=== PATIENT | male | born 1965 | race Caucasian/White ===

== ENCOUNTER → 2019-12-15 13:11 | Outpatient (BNVA) | payer MEDICARE, MEDICAID, SELFPAY | PROVIDERS: PCP Internal Medicine; Referring Provider Internal Medicine; Visit Provider Surgery | DX: R10.9 Unspecified abdominal pain (principal); I10 Essential (primary) hypertension | CPT/HCPCS: 99202 ==

== ENCOUNTER 2021-09-16 01:26 | Outpatient (CLI) | payer MEDICARE, MEDICAID, SELFPAY ==
--- NOTE | 2021-09-16 11:00 | DI.NM_ITS ---
Exam(s) NM BONE SCAN WHOLE BODY GRP EXAM: NM BONE SCAN WHOLE BODY GRP CLINICAL HISTORY: PROSTATE CA. TECHNIQUE: Injected Dose: 25 mCi Tc-99m MDP Delayed Images: 2-3 hours. COMPARISON: CT CT ABDOMEN PELVIS WO from 09/16/2021 FINDINGS: There is focal increased uptake seen in the right shoulder at the AC joint level, most probably degen erative. There is some increased focal uptake seen in the mid-lower lumbar spine at L3-4 level consistent with degenerative disc disease chronic nature as seen on today's abdominal CT scan. There is also focus of increased uptake seen in the right side the thoracic spinal column at approxim ately T6 level. Suspect that this is also degenerative. No abnormal uptake seen in the rib cages no r in the pelvis and hips. Some uptake in the medial compartment of the right knee is consistent with degenerative change. A small focus of increased uptake seen at the level of the anterior tibial tub ercle or slightly lateral of this in the right tibial upper metaphysis is noted. It is doubtful that this would be metastatic. IMPRESSION: 1. Foci of increased skeletal uptake as described individually above. Doubtful for metastatic osseou s disease. 2. Small focus of increased uptake seen in the lateral aspect of the proximal right tibial metaphysi s noted which doubtful for metastatic disease. Nevertheless, recommend right knee plain films. DATA REPOSITORY:
[2021-09-16] MEDS: Breeza Beverage 473 ML BTL PO (11:57)
[2021-09-16] MEDS: Gastrografin 120 ML BTL 25 ML PO (11:59)
--- NOTE | 2021-09-16 13:00 | DI.CT_ITS ---
Exam(s) CT ABDOMEN PELVIS WO EXAM: CT ABDOMEN PELVIS WO CLINICAL HISTORY: PROSTATE CA. TECHNIQUE: Imaging Protocol: Axial computed tomography images with coronal and sagittal reformatted images were created and reviewed CONTRAST MATERIAL: Intravenous: none Oral: Yes COMPARISON: No exams were available for comparison FINDINGS: VISUALIZED LUNG BASES: There are multiple tiny benign calcified granulomas in the visualized lung bas es. There are no pleural effusions.. ABDOMEN: There is no ascites. MESENTERY: There is haziness of the central mesentery, not associated with a distinct mass nor promin ent mesenteric lymphadenopathy. LIVER: There are no obvious focal hepatic lesions evident of this noninfused study. Calcified granul omas noted in the liver. GALLBLADDER/BILIARY: Gallbladder surgically absent. CBD is not dilated. PANCREAS: No evidence of pancreatic mass nor dilatation of the pancreatic duct. SPLEEN: Spleen size is normal. There are multiple calcified granulomas in the spleen evident. ADRENALS: There are no significant adrenal masses. KIDNEYS:No cysts evident. No solid renal masses. No calculi nor hydronephrosis. . ABDOMINAL AORTA: Abdominal aorta is not enlarged. LYMPH NODES: There is no retroperitoneal nor paraaortic adenopathy. ABDOMINAL WALL: There is a small fat only containing umbilical hernia. GI: There is no evidence of bowel obstruction, free air, nor abscess. PELVIS: LYMPH NODES: There is no intrapelvic nor inguinal adenopathy. GI: No evidence of appendicitis.No evidence of sigmoid diverticulitis. URINARY BLADDER: No calculi nor obvious masses evident REPRODUCTIVE: Prostate size is normal. Seminal vesicles unremarkable. OSSEOUS: There are no lytic nor blastic osseous lesions. There is a small benign-appearing bone devyn nd in the right ischial tuberosity. There is ankylosis of the left sacroiliac joint. IMPRESSION: 1. There are multiple benign calcified granulomas in the spleen, liver, and lung bases. There are no obvious metastatic appearing lesions in these organs evident on this noninfused study. 2. There is haziness in the central mesentery around the superior mesenteric vessels. This dahlia- ty pe mesentery pattern can be nonspecific but can also be seen in pathologic conditions, including lymp rayna. However, there are no prominent abnormal lymph nodes evident on the present study. 3. No lytic nor blastic osseous lesions identified. RADIATION DOSE DELIVERED: 1,464.66mGy.cm Total DLP DATA REPOSITORY: All CT scans at this facility are submitted to the National Radiology Data Registry (NRDR) Dose Index Registry (DIR) with the [employer] (ACR). RADIATION OPTIMIZATION: All CT scans at this facility use at least one of these dose optimization te chniques: automated exposure control; mA and/or kV adjustment per patient size (includes targeted exa ms where dose is matched to clinical indication); or iterative reconstruction.
== END 2021-09-16 01:46 ==
PROVIDERS: PCP Internal Medicine; Visit Provider Internal Medicine
DX: C61 Malignant neoplasm of prostate (principal); K76.89 Other specified diseases of liver; R91.8 Other nonspecific abnormal finding of lung field; D73.89 Other diseases of spleen; K55.8 Other vascular disorders of intestine
CPT/HCPCS: 78306; 74176; 82565

== ENCOUNTER 2023-08-06 10:45 | Outpatient (REF) | payer MEDICARE, MEDICAID, SELFPAY ==
--- NOTE | 2023-08-06 11:45 | SKI_PTH ---
PATIENT: Km Franco LOC: [facility] U#:[id number] AGE/SX: 58/M ROOM: RE08/06/[address]: Ceci Morrow : 1965 BED: DIS: 08/06/2023 SPEC #: [id number] RECD: 08/06/23 12:21 STATUS: ED [facility] #: [id number] KETAN: 08/06/23 11:[address]: Ceci Morrow DEPT: Surgical Specimen RECD BY: Faye Lovell ENTERED: 08/06/23 12:22 SP TYPE: YASMIN GOVEA DR: Jasmin Medina Tissues: 1 - SKIN BIOPSY(SHAVE/PUNCH) Procedures: SKIN LEVEL 4 Comments: [id number]
== END 2023-08-06 10:46 | disposition home or self-care (01) ==
LOC: LBN 10:45
PROVIDERS: PCP Internal Medicine; Visit Provider Surgery
DX: L73.8 Other specified follicular disorders (principal); R21 Rash and other nonspecific skin eruption
CPT/HCPCS: 88305

== ENCOUNTER → 2023-08-06 10:45 | Outpatient (BNVA) | payer MEDICARE, MEDICAID, SELFPAY | PROVIDERS: PCP Internal Medicine; Referring Provider Internal Medicine; Visit Provider Surgery | DX: L73.9 Follicular disorder, unspecified (principal); R22.2 Localized swelling, mass and lump, trunk; K91.89 Other postprocedural complications and disorders of digestive system; L27.0 Generalized skin eruption due to drugs and medicaments taken internally; L29.9 Pruritus, unspecified | CPT/HCPCS: 11301 ==

== ENCOUNTER → 2023-08-09 04:07 | Outpatient (CLI) | payer MEDICARE, MEDICAID, SELFPAY ==
--- NOTE | 2023-08-09 06:15 | DI.US_ITS ---
Exam(s) US SOFT TISSUE HEAD OR NECK EXAM: US SOFT TISSUE HEAD OR NECK CLINICAL HISTORY: Soft tissue swelling of neck,R22.9. TECHNIQUE: Ultrasound was performed using standard protocol. COMPARISON: No exams were available for comparison FINDINGS: Sonographic assessment utilizing grayscale and color Doppler imaging was performed and targeted to th e area of clinical concern. No suspicious cystic or solid masses are seen in the neck in the area of concern. IMPRESSION: Unremarkable examination. DATA REPOSITORY:
--- NOTE | 2023-08-09 06:15 | DI.US_ITS ---
Exam(s) US THYROID EXAM: US THYROID CLINICAL HISTORY: neck swollen/hx goiter,R22.9. TECHNIQUE: Ultrasound thyroid performed using standard protocol. COMPARISON: No priors for comparison. FINDINGS: ISTHMUS: 6.5 mm RIGHT LOBE: Size: 5.7 x 1.8 x 1.9 cm Echogenicity: Normal. Vascularity: Normal. Nodules: None. LEFT LOBE: Size: 5.1 x 1.5 x 1.7 cm Echogenicity: Normal. Vascularity: Normal. Nodules: None. OTHER FINDINGS: None. IMPRESSION: Normal sonographic appearance of the thyroid gland. DATA REPOSITORY:
== END ==
PROVIDERS: PCP Internal Medicine; Visit Provider Surgery
DX: R22.2 Localized swelling, mass and lump, trunk (principal); Z86.39 Personal history of other endocrine, nutritional and metabolic disease
CPT/HCPCS: 76536

== ENCOUNTER 2023-08-24 06:44 | Day surgery (SDC) | payer MEDICARE, MEDICAID, SELFPAY ==
--- NOTE | 2023-08-23 15:34 | ENDO_ITS ---
Date of service: 08/24/23 Time of Service: 09:00 Endoscopy Report DATE OF PROCEDURE: 08/24/23 PRE-OP DIAGNOSIS: Medication refractory GERD/dysphagia/s/p Jodi POST-OP DIAGNOSIS: other (Bile reflux gastritis) SURGEON: Ceci Morrow ANESTHESIA TYPE: General:No Airway ESTIMATED BLOOD LOSS: 1 PATHOLOGY: other COMPLICATIONS: None DISPOSITION: same day PROCEDURE DESCRIPTION: After informed consent was obtained the patient was take to the procedure room and placed in a supine position. Monitors were applied and a time out was done. The patients name, date of , procedure type, allergies to medications and metal in their body was reviewed. A bite block was placed and the patient was sedated. Once sedated and comfortable the gastroscope was advanced through the oropharynx which was grossly normal into the esophagus. The proximal and mid- esophagus were normal. In the distal esophagus: the wrap has come undone, But there is significant scarring in the posterior portion of the esophagus noted. I am able to pass the scope, But if the stricturing becomes any worse he may require dilation. There are no signs esophageal erosion. There is no diverticula or varices. The scope was advanced into the stomach and through the pylorus into the 3rd portion of the duodenum. The duodenum was noted to be normal. Biopsies were done, all specimens are retrieved and no bleeding is noted. The scope was retracted back into the stomach and biopsies were done to rule out H. pylori. Upon entering the stomach there was noted to be a small amount of bile present. He has mild gastritis in the distal one third of his stomach. There is no ulceration or active bleeding. the scope was retroflexed. The cardia and fundus were noted to be normal. There is no hiatal hernia noted. The scope was retracted back into the esophagus and biopsies were done of the GE junction to rule out Agudelo's. The Z line was regular. The GE junction was at 40 cm. The scope was removed and the patient was woken up and taken back to [facility] in stable condition.
--- NOTE | 2023-08-24 05:44 | ANES.PREOP_ITS ---
General Info Date of Service Date Performed: 08/24/23 Height: 5 ft 6.5 in Weight: 101.605 kg Body Mass Index (BMI): 35.6 Surgical Procedure: Operation Date: 08/24/23 08:20 Proposed Procedure Side Surgeon p Gastroscopy Ceci Morrow, Meds Allergies and Home Medications Allergies Allergy/AdvReac Type Severity Reaction Status Date / Time lisinopril Allergy Mild cough Verified 08/24/23 07:24 Penicillins Allergy Mild rash Verified 08/24/23 07:24 cranberry Allergy Unknown Hives Verified 08/24/23 07:24 horseradish Allergy hives Verified 08/24/23 07:24 Home Medication Medication Instructions Recorded cyclobenzaprine 10 mg tablet 10 mg PO TID 12/12/19 pantoprazole 40 mg tablet,delayed 40 mg PO BID 02/11/20 release amlodipine 5 mg tablet 5 mg PO DAILY 09/18/22 azathioprine 50 mg tablet 50 mg PO DAILY 09/18/22 chlorthalidone 25 mg tablet 25 mg PO DAILY 09/18/22 prednisone 10 mg tablet 10 mg PO DIRECTED 09/18/22 albuterol sulfate 90 mcg/actuation 2 puff inhalation Q6H PRN 08/06/23 aerosol inhaler budesonide-formoterol HFA 160 2 puff inhalation BID 08/06/23 mcg-4.5 mcg/actuation aerosol inhaler (Symbicort) fluticasone propionate 220 1 puff inhalation Q12H 08/06/23 mcg/actuation HFA aerosol inhaler fluconazole 100 mg tablet 100 mg PO DAILY #5 tabs 08/09/23 (Diflucan) Current Visit Medications: Current Medications Generic Name Dose Route Start Last Admin Trade Name Freq PRN Reason Stop Dose Admin Ringer's Solution 1,000 mls @ 80 mls/hr 08/24/23 06:00 IV 08/24/23 23:59 INFUSION [facility] IV Miscellaneous Supplies 1 each 08/24/23 06:00 Iv Access IV 08/24/23 23:59 DIRECTED [facility] Ondansetron HCl 4 mg 08/24/23 03:33 Ondansetron 4 Mg/2 Ml Vial IVP 09/23/23 03:32 Q4H PRN PRN Nausea / Vomiting Sodium Chloride 0 ml 08/24/23 06:00 Normal Saline Flush 10 Ml Syr IV 08/24/23 23:59 PRN PRN Sodium Chloride 0 ml 08/24/23 06:00 Normal Saline 10 Ml Vial IJ 08/24/23 23:59 DIRECTED PRN Sterile Water 0 ml 08/24/23 06:00 Water,Injection,Sterile 10 Ml Vial IJ 08/24/23 23:59 DIRECTED PRN PFSH Active Problems Active Problems: Problem Status Onset Code Illiterate Z55.0 Immunosuppression due to chronic steroid use D84.821, T38.0X5A, Z79.52 Current chronic use of systemic steroids Z79.52 Drug eruption L27.0 Multiple hyalinizing granulomas of lung J84.10 Asthma J45.909 Dysphagia R13.10 Rectus diastasis of lower abdomen M62.08 Postcholecystectomy diarrhea K91.89, R19.7 Localized soft tissue swelling R22.9 Generalized pruritus L29.9 Sinus pressure J34.89 Abdominal pain R10.9 Insomnia G47.00 Osteoarthritis M19.90 Lumbar radiculopathy M54.16 Hypertension I10 Carpal tunnel syndrome G56.00 GERD (gastroesophageal reflux disease) K21.9 BPH (benign prostatic hyperplasia) N40.0 Medical History Medical History Chronic sinusitis, unspecified Gastro-esophageal reflux disease without esophagitis Hyperlipidemia, unspecified Benign prostatic hyperplasia without lower urinary tract symptoms Medical History Comments:: Pt. 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 Surgical History Surgical History History of laparoscopic cholecystectomy History of Cleve fundoplication Tobacco Smoking/Tobacco Use Status: Former Tobacco Use Alcohol Alcohol Intake: current Alcohol intake frequency: 3 or more drinks per day Alcohol type: beer Substance Use Substance use: Current Sobriety Substance use type: former substance user and marijuana Vital Signs and Lab Results Vital Signs Most Recent Vital Signs in EMR: Temp Pulse Resp BP Pulse Ox 36.2 C L 68 16 150/93 H 97 08/24/23 07:27 08/24/23 07:27 08/24/23 07:27 08/24/23 07:27 08/24/23 07:27 Lab Results Blood Type / Crossmatch: No Data to Display Complete Blood Count: No Data to Display Complete Metabolic Panel: No Data to Display Liver Function Panel: No Data to Display Coagulation Panel: No Data to Display Cardiac Panel: No Data to Display Arterial Blood Gas: No Data to Display Venous Blood Gas: No Data to Display Pancreas Panel: No Data to Display Thyroid Panel: No Data to Display Infectious Disease: No Data to Display Blood Cultures: No Data to Display Toxicology Panel: No Data to Display Anesthesia Assessment and Plan Anesthesia History Personal History: No History of Anesthesia Complications Family History: No Family History of Anesthesia Complications Exercise Tolerance Exercise Tolerance: Metabolic Equivalents>4 Pertinent Negatives Pertinent Negatives: No Major Cardiovascular Symptoms or Complaints, No Major Pulmonary Symptoms or Complaints and No History of CVA/TIA Cardiac & Pulmonary Exam Cardiac Exam: Normal S1/S2 Heart Sounds Pulmonary Exam: Clear Bilateral Breath Sounds Implantable Cardiac Device Does patient have a Pacemaker or an ICD?: No Airway Exam Known Difficult Airway: No Mallampati Class: 2 Mouth Opening: Normal (> 3cm) Thyromental Distance: Greater than 3 cm Neck Range of Motion: Full ROM Neck Circumference: Thick Teeth Condition: Generalized Poor Dentition (only 4 teeth, broken) ASA Classification ASA Score: ASA 3 Emergency Case?: No NPO Status NPO Status: NPO Clears >2 hours, Solids >8 hours Anesthesia Plan Resuscitation Status: Full Code Anesthesia Technique: General Anesthesia Airway Planned: Natural Airway Monitors Used: Standard Monitors Preoperative Comments:: hx of GERD and has had a CLEEV at [facility] many yrs ago. He notes he is having problems swallowing. He is on protonix. But, he is also on chronic steriods. He is not had a follow-up EGD since his surgery 30 years ago.
[2023-08-24 07:27] VITALS: BP 150/93; PULSE 68; RESP 16; TEMP 36.2; O2SAT 97
[2023-08-24] MEDS: Lactated Ringers 1,000 ML 80 ML IV (07:52)
[2023-08-24 08:09] VITALS: BMI 35.6
--- NOTE | 2023-08-24 08:23 | STOM_PTH ---
PATIENT: Km Franco LOC: [facility] U#:[id number] AGE/SX: 58/M ROOM: RE08/24/[address]: Ceci Morrow : 1965 BED: DIS: 08/24/2023 SPEC #: [id number] RECD: 08/24/23 11:11 STATUS: ED [facility] #: [id number] KETAN: 08/24/23 08:[address]: Ceci Morrow DEPT: Surgical Specimen RECD BY: Faye Lovell ENTERED: 08/24/23 11:12 SP TYPE: STOMACH OTHR DR: Jasmin Medina Tissues: 1 - BIOPSY BOWEL 2 - BIOPSY BOWEL 3 - STOMACH BIOPSY 4 - STOMACH BIOPSY 5 - ESOPHAGUS BIOPSY 6 - ESOPHAGUS BIOPSY Procedures: GROSS AND MICRO LEVEL 4 Comments: [id number]
[2023-08-24 08:37] VITALS: BP 131/75; PULSE 67; RESP 16; TEMP 36.5; O2SAT 93
--- NOTE | 2023-08-24 08:48 | W.ANESPOSTOP ---
Postoperative Evaluation Date, Time and Location Date Performed: 08/24/23 Time Performed: 08:48 Patient Location: Day Surgery Unit Vital Signs Most Recent Imported Vital Signs: Most Recent Vital Signs Temp Pulse Resp BP Pulse Ox 36.5 C 67 16 131/75 93 08/24/23 08:37 08/24/23 08:37 08/24/23 08:37 08/24/23 08:37 08/24/23 08:37 Pain Score Most Recent Pain Score: Most Recent Pain Score Pain Level 0 08/24/23 08:37 Assessment Mental Status: Awake (Alert & Oriented to Patient Baseline) Airway and Respiratory Function: Patent airway with normal (patient baseline) respiratory exam Cardiovascular Function: Hemodynamically Stable Hydration Status: Adequately Hydrated Nausea & Vomiting: No Nausea or Vomiting Pain: Pt. Denies Any Pain Peripheral Nerve Block: Patient did not receive a nerve block
--- NOTE | 2023-08-24 09:05 | W.PM.DSUDISC ---
Date of service: 08/24/23 Time of Service: 09:13 Discharge Plan Disposition Patient Disposition: Home Condition: Good Discharge Details Reason For Visit: stomach scope Attending Provider: Ceci Morrow Primary Care Provider: Jasmin Medina Home Meds and New Rx's Prescriptions: New sucralfate [Carafate] 1 gram tablet 1 g PO BID Qty: 60 12RF Rx Instructions: take at noon adn bedtime. Do not take with any other medications Continued prednisone 10 mg tablet 10 mg PO DIRECTED Rx Instructions: see taper instructions azathioprine 50 mg tablet 50 mg PO DAILY amlodipine 5 mg tablet 5 mg PO DAILY chlorthalidone 25 mg tablet 25 mg PO DAILY budesonide-formoterol [Symbicort] 160-4.5 mcg/actuation HFA aerosol inhaler 2 puff inhalation BID fluticasone propionate 220 mcg/actuation HFA aerosol inhaler 1 puff inhalation Q12H albuterol sulfate 90 mcg/actuation HFA aerosol inhaler 2 puff inhalation Q6H PRN fluconazole [Diflucan] 100 mg tablet 100 mg PO DAILY Qty: 5 0RF Rx Instructions: take daily until finished cyclobenzaprine 10 mg tablet 10 mg PO TID pantoprazole 40 mg tablet,delayed release (DR/EC) 40 mg PO BID Discharge Instructions Additional Instructions: Post EGD Instruction ?You had anesthesia for your EGD/stomach scope today.? For your safety, please do the following for the next twenty-four (24) hours: Do Not operate a motor vehicle (car, truck, motorcycle, etc.) Do Not drink alcoholic beverages or use any recreational drugs for the first 24 hours or while taking pain medications. The medications in your body may have a reaction that can be dangerous. Do Not make any important decisions or sign any important papers You have just had a gastroscopy (EGD) or upper GI tract examination. It is important for your smooth recovery that you carefully follow the recommendations below. Do not hesitate to call if any questions should arise about your anesthesia, condition, or care. -Symptoms you may experience during the next 24 hours: ?1. Mild abdominal pain or excessive gas or a bloated feeling which improves with rest, liquids, eating? slightly, and walking as tolerated. 2. Drowsiness and/or forgetfulness because of the medications you were given. ?3. Throat numbness for about 1 hour. 4. A sore throat which you can treat with throat lozenges or by gargling with salt water 4-5 times a day. 5. Redness at the site of your IV which you can treat with warm compresses. SPECIAL INSTRUCTIONS: 1. You may resume your previous diet in one hour. We recommend a light meal to start, then progress as tolerated. 2. Restart regular medications in one hour. 3. No aspirin or non-steroidal containing medication for three days. 4. No lifting over 20 pounds or strenuous activity for the first 24 hours after your procedure. After 24 hours there are no restrictions on your activity, but you may feel fatigued for a few days. Findings: bile reflux gastritis -Medications: start carafate at noon adn at bedtime. Do not take w/ other medications. -Continue to follow lifestyle modifications: No alcohol, tobacco products, Aspirin or NSAID's (ibuprofen, Motrin, Naprosyn, aleve, etc).? Try to limit/avoid:? soda pop/any carbonated beverages, caffeine (including tea & chocolate), and acidic foods, (tomatoes, citrus, onions, peppermints) spicy or fried/fatty foods. Do not lie down for 30 minutes after eating, and do not eat 2 hours prior to bedtime. Avoid wearing tight fitting clothing/ belts. Follow up: -My office will send a letter with the results of your biopsy?s in 2-3wks time. Call the office at [phone] (Office) or [phone] (Hospital), or go to the ER right away if you notice any of the followin. Vomiting blood and /or ?coffee ground? material. ?2. Worsening of abdominal pain or cramping. ?3. Trouble with breathing, cough, and/or fever (temperature above 101.5 F). 4. Increasing pain with swallowing. ?5. Chest pain. 6. Any new symptoms. 7. Worsening of the redness at the IV site Activity:: see above Diet:: see above Discharge Orders Discharge Orders: Discharge Order (Routine); Ordered 08/24/23 Ordered By: Ceci Morrow DS: Diagnosis Discharge Diagnosis (1) Hypertension: Status: Chronic (2) GERD (gastroesophageal reflux disease): Status: Chronic (3) BPH (benign prostatic hyperplasia): Status: Chronic (4) Immunosuppression due to chronic steroid use: Status: Acute (5) Asthma: Status: Chronic (6) Multiple hyalinizing granulomas of lung: Status: Acute (7) Insomnia: Status: Acute (8) Hyperlipidemia, unspecified: (9) Gastro-esophageal reflux disease without esophagitis: (10) Bile reflux gastritis: Status: Acute
[2023-08-24 09:07] VITALS: BP 140/94; PULSE 62; RESP 18; TEMP 36.5; O2SAT 95
== END 2023-08-24 09:56 | disposition home or self-care (01) ==
PROVIDERS: PCP Internal Medicine; Visit Provider Surgery
PROC: 0DJ68ZZ Inspection of Stomach, Via Natural or Artificial Opening Endoscopic (ICD-10-PCS; CPT 43235; principal; 2023-08-24 08:15)
DX: K21.9 Gastro-esophageal reflux disease without esophagitis (principal); I10 Essential (primary) hypertension; K29.60 Other gastritis without bleeding; K22.89 Other specified disease of esophagus; K31.89 Other diseases of stomach and duodenum
CPT/HCPCS: 43239; 88305; J2001; J2250; J2704

== ENCOUNTER → 2023-10-15 01:08 | Outpatient (CLI) | payer MEDICARE, MEDICAID, SELFPAY ==
--- NOTE | 2023-10-15 | ETT_ITS ---
APPROVED REPORT Exam: Exercise Treadmill Patient Location: Out-Patient Room/Bed: Stress Nurse: Willis Puckett RN Ordering Provider:PEGGY LIZABETH, Contact Number: [phone] BMI: 37.90 Baseline Rhythm: Sinus Rhythm Indications: Chronic angina Medical History Medical History: HTN, HLD, GERD Cardiac Medications: Lisinopril Allergies: Lisinopril Cardiac Risk Factors: HTN, GERD, asthma. Pretest Chest Pain Characteristics: Non-exertional Chest pain Exercise History: Sedentary Lung Sounds: Clear to auscultation Heart Sounds: Regular Stress Test Details Test: Exercise stress testing was performed using a Marques protocol. Rest Stress HR Resting HR Supine: 77 bpm Max Heart Rate (APMHR): 161 bpm Resting HR Standin bpm Target HR (85% APMHR): 137 bpm Max HR Achieved: 145 bpm % of APMHR: 90 Recovery HR: 92 bpm HR response to stress: Normal HR response to stress BP Resting BP Supine: 148/80 mmHg Resting BP Standin/92 mmHg Max BP: 214/72 mmHg Recovery BP: 162/72 mmHg BP response to stress: Abnormal hypertensive response to stress. ECG Resting ECG: Sinus Rhythm Stress ECG: Sinus Tachycardia ST Change: Downsloping ST depression Lead(s): II, III, aVF Stage: [address] Deviation: 0.5 mm Arrhythmia: None Recovery ECG: Sinus Rhythm Recovery ST Change: Downsloping ST depression Lead(s): II, III, aVF Recovery ST Deviation: 0.5 mm Recovery Arrhythmia: None Comment: Return to baseline. Clinical Reason for Termination: Fatigue, Dyspnea, Target HR Achieved Stress Symptoms: Dyspnea, General Fatigue Exercise duration: 4 min23 sec Highest Stage Reached: Stage 2: 2.5 mph at 12% grade. Exercise capacity: 6.29 METs Angina Score: Non-Limiting Carrion Treadmill Score: -2.5 Rate Pressure Product: [id number] Stress ECG Conclusion 1. The resting electrocardiogram showed left ventricular hypertrophy, minor ST abnormalities 2. Patient exercised on the Marques protocol and completed a workload of 6.29 METS 3. Hypertensive blood pressure response to exercise. Normal heart rate response to exercise. Peak h eart rate achieved was 90% of maximal predicted for age 4. At peak exercise there was 0.[address] depression diffusely, not diagnostic of myocardial ischemia 5. There were no significant dysrhythmias Carrion Treadmill Score is -2.5 which is Moderate risk. Stress Test Summary STAGE Time (mins) Speed (mph) Grade (%) HR BP SpO2 SYMPTOMS METS Supine 77 148/80 96 Standing 81 162/92 96 1 3 1.7 10 110 210/89 98 4.5 1 min recovery 126 212/72 98 3 min recovery 100 214/72 98 6 min recovery 94 182/78 98 9 min recovery 92 162/72 98
== END ==
PROVIDERS: PCP Internal Medicine; Visit Provider Internal Medicine
DX: I20.89 Other forms of angina pectoris (principal); R94.31 Abnormal electrocardiogram [ECG] [EKG]; I42.2 Other hypertrophic cardiomyopathy
CPT/HCPCS: 93016; 93018; 93017

== ENCOUNTER → 2024-04-28 09:00 | Outpatient (BNVA) | payer MEDICARE, MEDICAID, SELFPAY | PROVIDERS: PCP Internal Medicine; Referring Provider Internal Medicine; Visit Provider Surgery | DX: K21.9 Gastro-esophageal reflux disease without esophagitis (principal); K91.89 Other postprocedural complications and disorders of digestive system; R19.7 Diarrhea, unspecified; R19.5 Other fecal abnormalities; Z55.0 Illiteracy and low-level literacy | CPT/HCPCS: 99214 ==